=== PATIENT | male | born 1940 | race Caucasian/White ===

== ENCOUNTER → 2022-01-11 | Outpatient (CLI) | payer MEDICARE, SELFPAY ==
--- NOTE | 2022-01-11 10:17 | RAD_ITS ---
STUDY: X-RAY - LUMBAR SPINE REASON FOR EXAM: Male, 81 years old. RADICULOPATHY, LUMBAR REGION TECHNIQUE: 4 view(s) of the lumbar spine were obtained. COMPARISON: None FINDINGS: Normal lumbar lordosis. There is no substantial scoliosis. There is slight degenerative anterolisthesis of L5 on S1 and with slight degenerative posterior listhesis of L4 on L5. No lumbar compression fracture. The lumbar disc spaces demonstrate mild/moderate degenerative narrowing with mild endplate sclerosis and marginal osteophytes; these osteophytes are largest at the L1/2 level. Extensive lower thoracic and lumbar facet arthritis is present. Visualized upper sacrum is unremarkable. Abdominal aorta is mildly calcific. Visualized lower ribs are intact. Visualized bowel loops are unremarkable. No renal calculi are seen. RAD/L/S Spine Min 4 Views IMPRESSION: Lumbar degenerative disc disease and facet arthritis. No acute fracture. Electronically Signed: Kojo Martin MD at 2:38 EDT ,
== END | disposition home or self-care (01) ==
PROVIDERS: PCP Dentist; Referring Provider Podiatrist; Visit Provider Podiatrist
DX: M54.16 Radiculopathy, lumbar region (principal)
CPT/HCPCS: 72110

== ENCOUNTER 2022-02-09 16:00 | Outpatient (RCR) | payer MEDICARE, SELFPAY | END 2022-02-09 19:00 | disposition home or self-care (01) | LOC: PT 16:00 | PROVIDERS: PCP Family Medicine; Referring Provider Podiatrist; Visit Provider Podiatrist | DX: M21.371 Foot drop, right foot (principal) | CPT/HCPCS: 97110; 97161 ==

== ENCOUNTER → 2023-01-17 | Outpatient (CLI) | payer MEDICARE, SELFPAY ==
[2023-01-17 08:30] LABS: AST(SGOT) 25 U/L (15-37); Alanine Aminotransfer ALT/SGPT 23 U/L (16-61); Albumin, Serum 3.3 g/dL (3.2-5.0); Alkaline Phosphatase 61 U/L (45-117); Bilirubin, Direct 0.09 mg/dL (0.00-0.30); Cholesterol 142 mg/dL (200); Globulin 4.4 g/dL (2.2-4.2); High Density Lipoprotein 45 mg/dL; Protein, Total 7.7 g/dL (6.4-8.2); Triglycerides 89 mg/dL; Very Low Density Lipoprotein 18 mg/dL (5-40)
== END | disposition home or self-care (01) ==
PROVIDERS: PCP Internal Medicine; Referring Provider Internal Medicine Cardiovascular Disease; Visit Provider Internal Medicine Cardiovascular Disease
DX: I10 Essential (primary) hypertension (principal); E78.00 Pure hypercholesterolemia, unspecified; I35.0 Nonrheumatic aortic (valve) stenosis
CPT/HCPCS: 36415; 80061; 80076

== ENCOUNTER → 2023-01-19 | Outpatient (CLI) | payer MEDICARE, SELFPAY ==
--- NOTE | 2023-01-19 09:51 | ECHOCS_ITS ---
Version 2 Reason For Study: Procedure This was a 2D Doppler, Color Flow transthoracic echocardiogram. Exam performed in department. Left Ventricle Normal LV size. Mild concentric left ventricular hypertrophy. The estimated ejection fraction is 60 %. Septal motion consistent with bundle branch block. No regional wall motion abnormalities noted. Right Ventricle Normal RV size. Normal systolic function. Atria Normal left atrium. Normal right atrium. Mitral Valve Normal mitral valve. Mild (1+) eccentric mitral valve insufficiency. Tricuspid Valve Normal tricuspid valve. Aortic Valve Trisinus/trileaflet aortic valve. Peak aortic valve gradient 33 mmHg. Mean aortic valve gradient 20 mmHg. Mild aortic stenosis. Pulmonic Valve Normal pulmonic valve. Great Vessels Normal aortic root. The pulmonary artery is normal size. Normal inferior vena cava. Pericardium/Pleural No pericardial effusion. MMode/2D Measurements & Calculations LVIDd: 3.5 cm IVSd: 1.3 cm LVOT diam: 2.0 cm LVIDs: 2.5 cm LVPWd: 1.3 cm LVOT area: 3.3 cm2 RVDd: 3.7 cm FS: 28.6 % Ao root diam: 3.2 cm LAV(MOD-bp): 37.9 ml LVAd ap4: 27.9 cm2 ACS: 1.1 cm LAV(MOD-bp) Indexed: 19.7 ml/m2 LVLd ap4: 8.6 cm LAV(MOD-sp2): 49.6 ml EDV(MOD-sp4): 74.7 ml LAV(MOD-sp4): 30.1 ml EDV(sp4-el): 76.6 ml LVAs ap4: 14.5 cm2 LVLs ap4: 6.3 cm ESV(MOD-sp4): 28.3 ml ESV(sp4-el): 28.3 ml EF(MOD-sp4): 62.1 % EF(sp4-el): 63.0 % SV(MOD-sp4): 46.3 ml SV(sp4-el): 48.3 ml LA A4 area: 13.1 cm2 LA dimension(2D): 3.8 cm RA A4 area: 10.4 cm2 Time Measurements MV dec time: 0.32 sec Doppler Measurements & Calculations MV E max maximo: 74.8 cm/sec Lat Peak E' Maximo: 9.0 cm/sec Med Peak E' Maximo: 5.9 cm/sec MV A max maximo: 112.1 cm/sec E/E' lat: 8.3 E/E' med: 12.8 MV E/A: 0.67 MV V2 max: 124.2 cm/sec Ao V2 max: 288.7 cm/sec MV max P.2 mmHg MV dec slope: 235.5 cm/sec2 Ao max P.4 mmHg MV V2 mean: 76.8 cm/sec Ao V2 mean: 212.8 cm/sec MV mean P.6 mmHg Ao mean P.2 mmHg MV V2 VTI: 30.4 cm Ao V2 VTI: 66.1 cm AV (velocity ratio): 0.48 MVA(VTI): 3.4 cm2 MADELINE(I,D): 1.6 cm2 MADELINE(V,D): 1.6 cm2 LV V1 max: 136.8 cm/sec SV(LVOT): 103.8 ml PA V2 max: 167.0 cm/sec LV V1 max P.5 mmHg PA V2 mean: 99.6 cm/sec LV V1 mean P.6 mmHg LV V1 mean: 100.7 cm/sec LV V1 VTI: 31.6 cm TR max maximo: 306.6 cm/sec TR max P.6 mmHg ECHO/Echo Complete Interpretation Summary Normal LV size. Mild concentric left ventricular hypertrophy. The estimated ejection fraction is 60 %. Septal motion consistent with bundle branch block. Mean aortic valve gradient 20 mmHg. Mild aortic stenosis. The aortic valve gradients are also identical. Compared to previous study, the left ventricular systolic function is the same.. Ordering Physician: Mil Maguire Referring Physician: Chula eBlla Performed By: Jaja Parisi, ALEJANDROCS, RVT
== END | disposition home or self-care (01) ==
PROVIDERS: PCP Internal Medicine; Referring Provider Internal Medicine Cardiovascular Disease; Visit Provider Internal Medicine Cardiovascular Disease
DX: I35.0 Nonrheumatic aortic (valve) stenosis (principal)
CPT/HCPCS: 93306

== ENCOUNTER 2023-09-01 15:31 | Emergency (ER) | payer MEDICARE, SELFPAY ==
[2023-09-01 15:33] VITALS: BP 173/108; PULSE 89; RESP 18; TEMP 37.2; O2SAT 93
[2023-09-01 15:47] LABS: Absolute Lymphocyte Count 0.88 X10^3/uL (0.83-4.51); Absolute Neutrophil Count 4.4 X10^3/uL (2.0-7.7); Basophil# 0.02 X10^3/uL; Basophil% 0.3 % (0-1); Eosinophil# 0.12 X10^3/uL; Eosinophils% 1.9 % (0-5); Hematocrit 36.9 % (40-54); Hemoglobin 12.3 g/dL (13.0-16.5); Lymphocyte # 0.88 X10^3/ul (0.83-4.51); Lymphocyte % 13.9 % (19-41); Mean Corp Hgb Conc 33.3 g/dL (32-36); Mean Corpuscular Hgb 30.4 pg (27.0-32.0); Mean Corpuscular Volume 91.3 fL (80-94); Mean Platelet Vol. 9.2 fl (6.2-12.0); Monocyte# 0.92 X10^3/uL; Monocyte% 14.5 % (0-10); NRBC Flagged by Analyzer 0 % (0-5); Neutrophil # 4.38 X10^3/uL (2.7-7.7); Neutrophil % 69.1 % (47-70); Platelet Count 231 K/mm3 (150-450); RBC Distribution Width CV 13.3 % (11.6-14.6); RBC Distribution Width SD 44.7 fl (35.1-43.9); Red Blood Count 4.04 M/mm3 (4.6-6.2); White Blood Count 6.3 K/mm3 (4.4-11.0)
--- NOTE | 2023-09-01 16:00 | RAD_ITS ---
STUDY: X-RAY CHEST REASON FOR EXAM: Male, 82 years old. chest pain TECHNIQUE: Single AP portable view of the chest. COMPARISON: None. FINDINGS: The lungs are clear and expanded. There is no demonstrated pleural abnormality. Normal size heart. Normal mediastinum and zoran. Normal visualized pulmonary arteries. There is atherosclerotic calcification of the aortic arch with tortuosity. There are diffuse degenerative changes of the visualized thoracic spine. Normal visualized ribs, clavicles, and shoulders. There is no demonstrated abnormality of the visualized soft tissue structures of the upper abdomen. RAD/Chest 1 View (Portable) IMPRESSION: Degenerative changes, as described above. No demonstrated acute cardiopulmonary process. Electronically Signed: Anthony Jade MD at 16:31 EST ,
[2023-09-01 16:09] LABS: Anion Gap 7 (5-15); BUN 35 mg/dL (7-18); BUN/Creat Ratio 25.2 RATIO (10-20); Calcium,Total 9.7 mg/dL (8.5-10.1); Chloride 103 mmol/L (98-107); Creatinine, Serum 1.39 mg/dL (0.70-1.30); EST Glomerular Filtration Rate 52 mL/min (>60); Est Glom Filt Rate - Afr Amer 63 mL/min (>60); Glucose 141 mg/dL (74-106); Potassium 3.8 mmol/L (3.5-5.1); Sodium Level 137 mmol/L (136-145); Troponin-I HS (w/2H Reflex) 7 pg/mL (3.0-78.0)
[2023-09-01 17:12] VITALS: BMI 25.6
[2023-09-01 17:13] VITALS: BP 143/87; PULSE 76; RESP 16; O2SAT 93
--- OUTSIDE RECORDS SUMMARY | 2023-09-01 17:20 | XMS RPT_ITS | CCD ---
Author Name Unknown Address [address] [facility] [address] [place] [address] Organization [facility] Care Team Providers Care Wind Commissioning Technician Name Role Phone ED BAIG Unavailable Unavailable PHYSICIAN, MISC Unavailable Unavailable ED BAIG Unavailable Unavailable PHYSICIAN, MISC Unavailable Unavailable Nelson Howe MD Primary Care Provider [phone] Nelson Howe MD Primary Care Provider NELSON HOWE Primary Care Unavailable NELSON HOWE Attending Unavailable DEVANTE KANG Referring Unavailab NELSON Guo Primary Care Unavailable GERALD, DEVANTE RAMOS Referring Unavailab le NELSON HOWE Primary Care Unavailable GERALD, DEVANTE RICHARD Referring Unavailab NELSON Guo Primary Care Unavailable NELSON HOWE Referring Unavailable NELSON HOWE Primary Care Unavailable NELSON HOWE Referring Unavailable NELSON HOWE Primary Care Unavailable NELSON HOWE Referring Unavailable NELSON HOWE Primary Care Unavailable NELSON HOWE Attending Unavailable ZORAIDA MARTINEZ Referring Unavailable NELSON HOWE Primary Care Unavailable GERALD, DEVANTE RICHARD Referring Unavailab le NELSON HOWE Primary Care Unavailable NELSON HOWE Primary Care Unavailable NELSON HOWE Referring Unavailable NELSON HOWE Primary Care Unavailable NELSON HOWE Referring Unavailable NELSON HOWE Primary Care Unavailable NELSON HOWE Referring Unavailable Nelson Howe MD Primary Care Provider [phone] Medications Current Medications Medication Drug Class(es) Dates Sig (Normalized) Sig (Original) perflutren lipid microspheres 1.3 mL in NaCl (PF) 0.9% 10 mL injection (DEFINITY) (9 sources) Start: 08-19-2021 End: 11-18-2022 perflutren lipid microspheres 1.3 mL in NaCl (PF) 0.9% 10 mL injection (DEFINITY) 125 ml sodium chloride 9 mg/ml prefilled syringe (9 sources) Start: 08-19-2021 End: 11-18-2022 sodium chloride 0.9 % (flush) 10 mL (BD POSIFLUSH) Completed/Discontinued Medications Medication Drug Class(es) Dates Sig (Normalized) Sig (Original) hydroCHLOROthiazide 25 mg oral tablet (8 sources) Thiazide Diuretic Start: take 1 tablet by mouth once daily hydroCHLOROthiazide (HYDRODIURIL, ESIDRIX) 25 mg tablet Take 1 tablet by mouth once daily. 90 tablet 3 01/13/2022 Active Problems Active Problems Problem Classification Problem Date Documented Date Episodic/Chronic Conduction disorders (9 sources) Left bundle branch block; Translations: [Left bundle-branch block, unspecified] Onset: 01-13-2022 Chronic Disorders of lipid metabolism (14 sources) Mixed hyperlipidemia; Translations: [Mixed hyperlipidemia] Onset: 08-24-2007 03-14-2017 Chronic Diverticulosis and diverticulitis (13 sources) Diverticulosis of colon; Translations: [Diverticulosis of large intestine without perforation or abscess without bleeding] Onset: 03-19-2008 03-14-2017 Chronic Essential hypertension (11 sources) Essential hypertension; Translations: [Essential (primary) hypertension] Onset: 01-13-2022 Chronic Heart valve disorders (14 sources) Nonrheumatic aortic (valve) stenosis; Translations: [Aortic valve disorders] Onset: 09-08-2021 09-08-2021 Chronic Hyperplasia of prostate (13 sources) Benign prostatic hyperplasia; Translations: [Benign prostatic hyperplasia without lower urinary tract symptoms] Onset: 03-20-2018 03-20-2018 Chronic Other and unspecified benign neoplasm (11 sources) Tubular adenoma of colon; Translations: [Benign neoplasm of colon, unspecified] 03-07-2018 Episodic Other connective tissue disease (1 source) Swelling of lower limb; Translations: [Other specified soft tissue disorders] Episodic Other ear and sense organ disorders (11 sources) Bilateral hearing loss; Translations: [Unspecified hearing loss, bilateral] Onset: 03-14-2017 03-14-2017 Chronic Residual codes; unclassified (2 sources) Edema of lower extremity; Translations: [Localized edema] Onset: 01-11-2022 01-11-2022 Episodic Unclassified (2 sources) UNSPECIFIED INJURY HEAD INITIAL ENC / S09.90XA(ICD-10) Onset: 04-20-2017 Unclassified (1 source) ABRASION LEFT FOREARM INITIAL ENC / S50.812A(ICD-10) Onset: 04-20-2017 Unclassified (1 source) PEDL DRVR INJ NONCOLL TRNSP NT INIT / V18.0XXA(ICD-10) Onset: 04-20-2017 Unclassified (1 source) ACTIVITY BIKE RIDING / Y93.55(ICD-10) Onset: 04-20-2017 Unclassified (1 source) RAILROAD TRACK PLACE OCC EXT CAUSE / Y92.85(ICD-10) Onset: 04-20-2017 Past or Other Problems Problem Classification Problem Date Documented Da te Episodic/Chronic Administrative/social admission (9 sources) Advance directive discussed with patient; Translations: [Other specified counseling] Onset: 02-17-2022 Episodic Cancer of colon (13 sources) History of malignant neoplasm of colon; Translations: [Personal history of other malignant neoplasm of large intestine] Onset: 03-19-2008 03-20-2018 Episodic Heart valve disorders (1 source) Cardiac murmur, unspecified; Translations: [Heart murmur] Onset: 09-01-2021 Episodic Other circulatory disease (4 sources) Elevated blood-pressure reading without diagnosis of hypertension; Translations: [Elevated blood-pressure reading, without diagnosis of hypertension] Onset: 08-24-2007 08-24-2007 Episodic Other connective tissue disease (1 source) Other specified soft tissue disorders; Translations: [Leg swelling] Onset: 01-11-2022 Episodic Other diseases of kidney and ureters (1 source) Disorder of kidney and ureter, unspecified; Translations: [Renal insufficiency] Onset: 02-27-2022 Episodic Other male genital disorders (12 sources) Disorder of prostate; Translations: [Disorder of prostate, unspecified] Onset: 03-07-2018 03-07-2018 Episodic Other male genital disorders (1 source) Disorder of prostate, unspecified; Translations: [Prostate disorder] Onset: 02-17-2022 Episodic Other non-epithelial cancer of skin (11 sources) Squamous cell carcinoma of skin; Translations: [Squamous cell carcinoma of skin, unspecified] Onset: 05-04-2018 05-02-2020 Episodic Other screening for suspected conditions (not mental disorders or infectious disease) (20 sources) Thyroid function tests abnormal; Translations: [Other specified abnormal findings of blood chemistry] Onset: 05-03-2020 06-09-2020 Episodic Residual codes; unclassified (10 sources) Bilateral lower limb edema; Translations: [Localized edema] Onset: 01-11-2022 01-11-2022 Episodic Residual codes; unclassified (8 sources) Active living will ; Translations: [Other specified health status] Onset: 02-17-2022 Episodic Residual codes; unclassified (1 source) Other specified health status; Translations: [Living will in place] Onset: 02-17-2022 Episodic Residual codes; unclassified (2 sources) Localized edema; Translations: [Bilateral leg edema] Onset: 09-01-2021 Episodic Screening and history of mental health and substance abuse codes (11 sources) Ex-smoker; Translations: [Personal history of nicotine dependence] Onset: 03-14-2017 03-14-2017 Episodic Unclassified (1 source) UNSPECIFIED INJURY HEAD INITIAL ENC; Translations: [UNSPECIFIED INJURY HEAD INITIAL ENC] Onset: 04-15-2017 Results Test Name Value Interpretation Reference Range Facil ity Vital Signs Date Time Vital Sign Value Performing Clinician Johnnie navarro 02-17-2022 19:12-0400 Body height 171.5 cm Nelson Howe MD Work Phone: [facility] 02-17-2022 19:12-0400 Body weight 77.11 kg Nelson Howe MD Work Phone: [facility] 02-17-2022 19:12-0400 Diastolic blood pressure 78 mm[Hg] Nelson Howe MD Work Phone: [facility] 02-17-2022 19:12-0400 Heart rate 72 /min Nelson Howe MD Work Phone: [facility] 02-17-2022 19:12-0400 Respiratory rate 16 /min Nelson Howe MD Work Phone: [facility] 02-17-2022 19:12-0400 Systolic blood pressure 128 mm[Hg] Nelson Howe MD Work Phone: [facility] 01-13-2022 08:37-0400 Diastolic blood pressure 80 mm[Hg] Devante Knag MD Work Phone: [facility] 01-13-2022 08:37-0400 Systolic blood pressure 140 mm[Hg] Devante Kang MD Work Phone: [facility] 01-13-2022 08:16-0400 Body height 171.5 cm Devante Kang MD Work Phone: [facility] 01-13-2022 08:16-0400 Body weight 77.56 kg Devante Kang MD Work Phone: [facility] 01-13-2022 08:16-0400 Heart rate 84 /min Devante Kang MD Work Phone: [facility] 01-13-2022 08:16-0400 Respiratory rate 18 /min Devante Kang MD Work Phone: [facility] 01-13-2022 08:16-0400 SaO2% (BldA) [Mass fraction] 95 % Devante Kang MD Work Phone: [facility] Encounters Encounter Date Encounter Type Care Provider Facility Start: 06-23-2023 Refill Devante Kang MD Work Phone: [facility] [place] Procedures Date Procedure Procedure Detail Performing Clinician Start: 03-29-2022 Myocardial spect mul tiple studies Devante Kang MD Work Phone: Start: 02-17-2022 Adult depression screening assessment Nelson Howe MD Work Phone: Start: 03-27-2019 Adult depression screening assessment Nelson Howe MD Work Phone: Plan of Treatment Date Care Activity Detail Author Start: 02-27-2025 DIABETES SCREEN DIABETES SCREEN [facility] Start: 02-27-2025 Diabetes Screening Diabetes Screening [facility] Start: 08-03-2023 Urine microalbumin profile [facility] Start: 05-02-2023 DIABETES SCREEN DIABETES SCREEN [facility] Start: 02-17-2023 Adult depression screening assessment DEPRESSION SCREENING [facility] Start: 02-17-2023 ANNUAL PCP TEAM CHRONIC DISEASE VISIT ANNUAL PCP TEAM CHRONIC DISEASE VISIT [facility] Start: 02-17-2023 BP CONTROLLED (<130/80) BP CONTROLLED (<130/80) [facility] Start: 09-05-2022 Advance Directive Discussion Advance Directive Discussion [facility] Start: 09-05-2022 Depression Assessment Depression Assessment [facility] Start: 08-19-2022 ANNUAL PCP TEAM CHRONIC DISEASE VISIT ANNUAL PCP TEAM CHRONIC DISEASE VISIT [facility] Start: 05-06-2022 Influenza vaccination INFLUENZA (#1) [facility] Start: 02-17-2022 End: 04-19-2022 Comprehensive metabolic 2000 panel - Serum or Plasma COMP METABOLIC PANEL Lab Routine Mixed hyperlipidemia Primary hypertension Expected: 02/17/2022, Expires: 04/19/2022 [facility] Work Phone: Immunizations Immunization Date Immunization Notes Care Provider Fa cili 06-06-2023 COVID-19 vaccine, ag e 12+ yr, season (PFIZER-BIONTECH) Devante Kang MD Work Phone: [facility] 06-06-2023 influenza, high dose seasonal, preservative-free Devante Kang MD Work Phone: [facility] 06-11-2022 COVID-19 vaccine, ag e 12+ yr, bivalent (PFIZER-BIONTECH) Devante Kang MD Work Phone: [facility] 06-11-2022 influenza, high dose seasonal, preservative-free Devante Kang MD Work Phone: [facility] 05-16-2020 influenza, high dose seasonal, preservative-free Nelson Howe MD Work Phone: [facility] 10-02-2019 zoster vaccine recombinant Nelson Howe MD Work Phone: [facility] Work Phone: 06-21-2019 influenza, high dose seasonal, preservative-free Nelson Howe MD Work Phone: [facility] 06-23-2018 influenza, high dose seasonal, preservative-free Nelson Howe MD Work Phone: [facility] 05-02-2018 zoster vaccine recombinant Nelson Howe MD Work Phone: [facility] Work Phone: 03-20-2018 pneumococcal polysaccharide vaccine, 23 valent Nelson Howe MD Work Phone: [facility] 06-20-2017 influenza, injectabl e, quadrivalent, contains preservative Nelson Howe MD Work Phone: [facility] Work Phone: 03-14-2017 pneumococcal conjuga te vaccine, 13 valent Nelson Howe MD Work Phone: [facility] 08-03-2013 tetanus toxoid, redu julián diphtheria toxoid, and acellular pertussis vaccine, adsorbed Nelson Howe MD Work Phone: [facility] Work Phone: 01-05-2008 zoster vaccine, live Nelson Howe MD Work Phone: [facility] Work Phone: 07-16-2007 pneumococcal polysaccharide vaccine, 23 valent Nelson Howe MD Work Phone: [facility] Work Phone: 03-05-2001 tetanus and diphther ia toxoids, adsorbed, preservative free, for adult use (2 Lf of tetanus toxoid and 2 Lf of diphtheria toxoid) Nelson Howe MD Work Phone: [facility] Work Phone: Payers Date Payer Category Payer Medicare AET[employer] MEDICARE A ETNA MEDICARE PPO [id number] 2021-Present [phone] [id number] [place] [address] PPO [id number] 2021 Medicare A[employer] MEDICARE A ETNA MEDICARE PPO [id number] 2021-Present [phone] [address] [place] [address] PPO [id number] 2021 Medicare [id number] 1958 Medicare [id number] Social History Date Type Detail Facility Start: 05-19-2022 Tobacco smoking stat [facility] Ex-smoker [facility] History of tobacco use Cigarette Smoker [facility] Start: 09-08-2021 End: 05-19-2022 Alcohol intake Current drinker of alcohol (finding) [facility] Start: 05-02-2020 End: 02-17-2022 History SDOH Alcohol Frequency 4 [facility] Start: 05-02-2020 End: 02-17-2022 History SDOH Alcohol Std Drinks 1 [facility] Start: 03-27-2019 History SDOH Alcohol Comment social [facility] Start: 04-30-2020 End: 02-17-2022 History SDOH Social Connections Get Together 2 [facility] Start: 04-30-2020 End: 02-17-2022 History SDOH Social Connections [employer] 3 [facility] Start: 04-30-2020 History SDOH Physica l Activity MPS 15 [facility] Start: 04-30-2020 End: 02-17-2022 History SDOH Financial 5 [facility] Start: 04-29-2020 Education 20 [facility] Start: 1940 Sex Assigned At Male [facility] Start: 12-20-2021 End: 05-19-2022 Exposure to SARS-CoV-2 (event) Not sure [facility] Start: 12-26-2021 End: 01-05-2022 Exposure to SARS-CoV-2 (event) Unable to assess [facility] Work Phone: Start: 02-17-2022 History SDOH Physica l Activity MPS 12 [facility] History of tobacco use Current smoker [facility] Start: 05-19-2022 End: 09-28-2022 Cigarettes smoked current (pack per day) - Reported 1 [facility] Start: 05-19-2022 Tobacco use and exposure Smoke less tobacco non-user [facility] Start: 05-19-2022 Tobacco Comment states quit 4 0 years ago [facility] Start: 02-17-2022 End: 09-28-2022 Social connection and isolation panel [facility] Do you belong to any clubs or organizations such as sikhism groups, unions, fraternal or athletic groups, or school groups? Yes [facility] Are you now , , , , never or living with a partner? [facility] How often to you hav e a drink containing alcohol? 2-3 time sa week [facility] How many standard dr inks containing alcohol do you have on a typical day? 1 or 2 [facility] How often do you hav e 6 or more drinks on 1 occasion? Never [facility] How hard is it for y ou to pay for the very basics like food, housing, medical care, and heating Not hard at all [facility] Do you feel stress - tense, restless, nervous, or anxious, or unable to sleep at night because your mind is troubled all the time - these days [OSQ] Not at all [facility] (I/We) worried wheeloy er (my/our) food would run out before (I/we) got money to buy more. Never true [facility] In the past 12 month s, was there a time when you were not able to pay the mortgage or rent on time? No [facility] Start: 04-30-2020 Gender identity Identifies as male gender (finding) [facility] Clinical Notes 08-19-2021 to 06-23-2023 Telephone Encounter - Morelia Esparza - 06/23/2023 11:01 AM EDTTelephone Encounter - Nila Reed LPN - 06/23/2023 10:04 AM EDTPatient Moris Howe MD - 02/17/2022 6:38 PM EDT Note Date & Type Note Facility 06-23-2023 Miscellaneous Notes Lvm to notify pt of lauri on 07/04/23 @9 am in [place] w/ Dr. Kang. Advised pt to call back if he wishes to reschedule. Morelia Esparza June 23, 2023 11:02 AM Patient last seen on 05/19/2022. Please call patient to schedule over due annual follow up. Nila Reed LPN documented in this encounter [facility] 06-23-2023 Miscellaneous Notes Patient's request for medication is as follows: Requested Prescriptions Pending Prescriptions Disp Refills rosuvastatin (CRESTOR) 5 mg tablet [Pharmacy Med Name: ROSUVASTATIN CALCIUM 5 MG TAB] 90 tablet 0 Sig: take 1 tablet by mouth at bedtime (TUESDAY-TUESDAY ONLY) Patient last seen on 05/19/2022. Message sent to clerical to call patient to schedule over due annual follow up. Prescription(s) as above. Please process accordingly. Nila Reed LPN documented in this encounter [facility] 05-25-2022 Miscellaneous Notes Spoke with pt about test results and recommendations to continue rosuvastatin and rechecking lipids in 3 months. Patient verbalizes understanding and is agreeable. Pura Esparza LPN Lipids are still above goal. Continue rosuvastatin, may need to increase to 10 mg daily. REcheck lipids in 3 months. documented in this encounter [facility] 03-30-2022 Miscellaneous Notes Voicemail msg left for pt to return call to [facility] to review test results. Office phone number provided. Pura Esparza LPN Negative stress test, normal LV function. documented in this encounter [facility] 03-29-2022 Note HNO ID: [id number] Author: Neema Willis RN Service: ? Author Type: Registered Nurse Type: Progress Notes Filed: 03/29/2022 12:47 PM Note Text: RADIOLOGY SERVICE PROGRESS NOTE SERVICE DATE: 03/29/2022 SERVICE TIME: 0900 PATIENT IDENTITY VERIFICATION COMPLETED USING TWO (2) METHODS: Patient confirmed name and Date of verbally. ALLERGIES REVIEWED: RK MEDICATIONS REVIEWED BY: ROLDAN PROCEDURE TYPE: NM STRESS: 0.4 mg of Lexiscan was administered IV at 0915 over 10 Seconds by Neema Willis RN Reversal agent used:NA LOT 32-105EV EXP IV SITE: IV palced by nuclear tecnologist POST EXAM PIV STATUS: Discontinued by Live In Companion PATIENT DISCHARGED TO: Nuclear Medicine Department for post stress imaging A Diagnostic radioactive procedure has taken place, with no further precautions necessary other than routine body substance precautions. More information regarding radiation safety can be found using this link: [email or web address] [email or web address] SIGNATURE: NEEMA WILLIS RN PATIENT NAME: SAMY SHORT DATE: 03/29/22 TIME: 12:46 PM [facility] 03-29-2022 Note HNO ID: [id number] Author: Amelia Gil RT(R) Service: Nuclear Medicine Author Type: Technologist Type: Progress Notes Filed: 03/29/2022 11:24 AM Note Text: RADIOLOGY SERVICE PROGRESS NOTE SERVICE DATE: 03/29/2022 SERVICE TIME: 08:05AM PATIENT IDENTITY VERIFICATION COMPLETED USING TWO (2) STANDARD IDENTIFIERS: Name and Date of confirmed by patient verbally FALL SCREENING: Has the patient had 2 falls in the last year or 1 fall with injury or currently using an Ambulatory Assistive Device (Walker, Cane, Wheelchair, Crutches, etc.)? No PATIENT GENDER DATA: .male ALLERGIES: Reviewed and unchanged MEDICATIONS REVIEWED: No PATIENT RELEVANT IMPLANT DATA REVIEWED: Not Applicable CREATININE: Creatinine Date Value Ref Range Status 02/27/2022 1.27 (H) 0.73 - 1.22 mg/dL Final 02/19/2022 1.31 (H) 0.73 - 1.22 mg/dL Final 05/02/2020 1.09 0.73 - 1.22 mg/dL Final Estimated Glomerular Filtration Rate Date Value Ref Range Status 02/27/2022 57 (L) >=60 mL/min/1.73m? Final Comment: Estimated Glomerular Filtration Rate (eGFR) is calculated using the 2020 CKD-EPI creatinine equation. This equation utilizes serum creatinine, sex, and age as parameters. The creatinine assay has traceable calibration to isotope dilution-mass spectrometry. Refer to KDIGO guidelines for clinical interpretation. In patients with unstable renal function, e.g. those with acute kidney injury, the eGFR may not accurately reflect actual GFR. eGFR- Date Value Ref Range Status 05/02/2020 >60 Final P.O.C.T. RESULTS: N/A March 29, [address] PERFORMED: No IV SITE: Ambulatory: A peripheral IV was started in the Right antecubital site with a Angio cath: 22 gauge. POST EXAM PIV STATUS: Discontinued PROCEDURE TYPE: NM Stress: 11.1mCi [id number] was administered IV for Rest Imaging at 08:14 by .me. 29.6 mCi [id number] was administered IV for Stress Imaging at 09:18 by .me. ADMINISTRATION TIME: PATIENT DISCHARGED TO: Ambulatory patient, left [place] department area. A Diagnostic radioactive procedure has taken place, with no further precautions necessary other than routine body substance precautions. More information regarding radiation safety can be found using this link: [email or web address]%20Medi [email or web address] SIGNATURE: RT Kimberli(R) PATIENT NAME: Samy Saucedo DATE: March 29, 2022 TIME: 11:23 AM PAGER/CONTACT #: [facility] 03-01-2022 Miscellaneous Notes Pt advised of instructions and verbalizes understanding.. Crys Hester LPN It would explain the glucose, but not effect kidney function. No need to repeat, just need to make sure he is staying hydrated and avoiding NSAIDs. Reviewed results and instructions with pt. Pt verbalizes understanding. Pt wanted to let Dr Howe know that he was not fasting at the time of lab work and had had a full breakfast and had pancakes or waffles with maple syrup. Pt wasn't sure if susan might have affected his results. Questions if he soul some in and give a fasting blood sample. Pt aware Dr Howe is out of the office and can wait for response. Crys Hester LPN Let patient know kidney function still look decreased but again appears to be dehydrated. Encourage increased water. documented in this encounter [facility] 02-17-2022 Note HNO ID: [id number] Author: Nelson Howe MD Service: ? Author Type: Physician Type: Progress Notes Filed: 02/18/2022 10:23 PM Note Text: Medicare Yearly Visit ? Medical B eligibilty date?unable to find Date of last exam?05/02/20 ? PAST MEDICAL HISTORY ? ? ? PAST MEDICAL HISTORY Diagnosis Date - Benign prostatic hyperplasia without lower urinary tract symptoms 03/20/2018 - Bilateral hearing loss 03/14/2017 - Diverticulosis of colon (without mention of hemorrhage) ? - Ex-smoker 03/14/2017 ? Started at age 19 up to 1 PPD and quit at age 22. - Malignant neoplasm of colon, unspecified site 03/19/2008 - Mixed hyperlipidemia 08/24/2007 - Squamous cell skin cancer 05/04/2018 ? Right cheek preauricular, 04/2018 - Tubular adenoma of colon 2008 ? ? PAST SURGICAL HISTORY ? PAST SURGICAL HISTORY Procedure Laterality Date - APPENDECTOMY ? 1975 ? expl lap, close sigmoid perforation - COLONOSCOPY W/BX ? 03/19/08 - I AND D ABSCESS ? child ? cervical ? ? Patient has no known allergies. ? Medications reviewed:??Yes ? FAMILY HISTORY ? FAMILY HISTORY Problem Relation Age of Onset - Diabetes Mother ? - Diabetes Father ? - Cancer Paternal Grandfather ?colon vs prostate - Diabetes Paternal Uncle ? ? ? SOCIAL HISTORY: Social History ??Socioeconomic History ?Marital status: ?Spouse name: Adwoa ?Number of children: 2 ?Years of education: 17 ?Highest education level: Not on file ??Occupational History ?Occupation: retired ?Employer: [employer] ??Social Needs ?Financial resource strain: Not on file ?Food insecurity: ?Worry: Not on file ?Inability: Not on file ?Transportation needs: ?Medical: Not on file ?Non-medical: Not on file ??Tobacco Use ?Smoking status: Former Smoker ?Packs/day: 1.00 ?Years: 5.00 ?Pack years: 5 ?Types: Cigarettes ?Smokeless tobacco: Never Used ?Tobacco comment: states quit 40 years ago ??Substance and Sexual Activity ?Alcohol use: Yes ?Alcohol/week: 2.5 - 5.0 standard drinks ?Types: 1 - 2 Glasses of Wine (5oz) per week ?Comment: social ?Drug use: No ?Sexual activity: Not on file ??Lifestyle ?Physical activity: ?Days per week: Not on file ?Minutes per session: Not on file ?Stress: Not on file ??Relationships ?Social connections: ?Talks on phone: Not on file ?Gets together: Not on file ?Attends sikh service: Not on file ?Active member of club or organization: Not on file ?Attends meetings of clubs or organizations: Not on file ?Relationship status: Not on file ?Intimate partner violence: ?Fear of current or ex partner: Not on file ?Emotionally abused: Not on file ?Physically abused: Not on file ?Forced sexual activity: Not on file ??Other Topics ?Concerns: ?Not on file ??Social History Narrative ?Not on file ?? Samy?works out regularly?7?times per week with walking and?bicycling.??He?watches his?diet for sodium, low fat and low cholesterol all of the time. ? ? List of current specialists seen: [facility] derm Dr. Kang (cardio ? End of Live Planning discussed including patients advanced directive wishes:?Yes ? I am willing to follow Samy's advanced directives. ? ? PHQ-2 / Depression screen Depression Screening 03/14/2017 03/20/2018 03/27/2019 02/17/2022 PHQ-2 Score 0 0 0 0 Depression screening tool completed and reviewed. Based on score and interview, patient is not at risk for depression. Screening tool discussed with patient, and I recommended no further intervention at this time. ? ? ? Functional Ability/Safety Screen 1. Was the patient's timed Up and Go test unsteady or longer than 30 seconds???No 2. ?Does the patient need help with the phone, transportation, shopping,preparing meals, housework, laundry, medications or managing money? No 3. ?Does your home have rugs in the hallway, lack of grab bars in the bathroom, lack of handrails on the stairs or have poor lighting? No ? Hearing Evaluation:?wears hearing aids ? PHYSICAL EXAM BP 128/78 (BP Site: Left Arm, BP Position: Sitting, BP Cuff Size: Regular Adult) Pulse 72 Resp 16 Ht 171.5 cm (5' 7.5 ) Wt 77.1 kg (170 lb) BMI 26.23 kg/m? ? Alert and oriented X 3:?YES Body mass index is 26.23kg/m?. Visual acuity:sees opto ? ? ASSESSMENT/PLAN: 81 year old male The following prevention plan was discussed during the office visit and provided to the patient: See below Chief Complaint Patient presents with: Medicare Wellness Exam HPI Samy Saucedo is a 81 year old male who presents here today for Medicare Annual Visit. 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 [facility] 02-17-2022 Instructions Nelson Howe MD - 02/17/2022 8:00 PM EDT Please bring in copies of living will and power of document review attorney for health care. documented in this encounter [facility] 02-17-2022 History of Present illness Narrative Medicare Yearly Visit Medical B eligibilty date unable to find Date of last exam 05/02/20 PAST MEDICAL HISTORY PAST MEDICAL HISTORY Diagnosis Date Benign prostatic hyperplasia without lower urinary tract symptoms 03/20/2018 Bilateral hearing loss 03/14/2017 Diverticulosis of colon (without mention of hemorrhage) Ex-smoker 03/14/2017 Started at age 19 up to 1 PPD and quit at age 22. Malignant neoplasm of colon, unspecified site 03/19/2008 Mixed hyperlipidemia 08/24/2007 Squamous cell skin cancer 05/04/2018 Right cheek preauricular, 04/2018 Tubular adenoma of colon 2009 PAST SURGICAL HISTORY PAST SURGICAL HISTORY Procedure Laterality Date APPENDECTOMY 1974 expl lap, close sigmoid perforation COLONOSCOPY W/BX 03/19/08 I & D ABSCESS child cervical Patient has no known allergies. Medications reviewed: Yes FAMILY HISTORY FAMILY HISTORY Problem Relation Age of Onset Diabetes Mother Diabetes Father Cancer Paternal Grandfather colon vs prostate Diabetes Paternal Uncle SOCIAL HISTORY: Social History Socioeconomic History Marital status: Spouse name: Adwoa Number of children: 2 Years of education: 17 Highest education level: Not on file Occupational History Occupation: retired Employer: [employer] Social Needs Financial resource strain: Not on file Food insecurity: Worry: Not on file Inability: Not on file Transportation needs: Medical: Not on file Non-medical: Not on file Tobacco Use Smoking status: Former Smoker Packs/day: 1.00 Years: 5.00 Pack years: 5 Types: Cigarettes Smokeless tobacco: Never Used Tobacco comment: states quit 40 years ago Substance and Sexual Activity Alcohol use: Yes Alcohol/week: 2.5 - 5.0 standard drinks Types: 1 - 2 Glasses of Wine (5oz) per week Comment: social Drug use: No Sexual activity: Not on file Lifestyle Physical activity: Days per week: Not on file Minutes per session: Not on file Stress: Not on file Relationships Social connections: Talks on phone: Not on file Gets together: Not on file Attends sikh service: Not on file Active member of club or organization: Not on file Attends meetings of clubs or organizations: Not on file Relationship status: Not on file Intimate partner violence: Fear of current or ex partner: Not on file Emotionally abused: Not on file Physically abused: Not on file Forced sexual activity: Not on file Other Topics Concerns: Not on file Social History Narrative Not on file Samy works out regularly 7 times per week with walking and bicycling. He watches his diet for sodium, low fat and low cholesterol all of the time. List of current specialists seen: [facility] derm Dr. Kang (cardio End of Live Planning discussed including patients advanced directive wishes: Yes I am willing to follow Samy's advanced directives. PHQ-2 / Depression screen Depression Screening 03/14/2017 03/20/2018 03/27/2019 02/17/2022 PHQ-2 Score 0 0 0 0 Depression screening tool completed and reviewed. Based on score and interview, patient is not at risk for depression. Screening tool discussed with patient, and I recommended no further intervention at this time. Functional Ability/Safety Screen 1. Was the patient's timed Up and Go test unsteady or longer than 30 seconds? No 2. Does the patient need help with the phone, transportation, shopping,preparing meals, housework, laundry, medications or managing money? No 3. Does your home have rugs in the hallway, lack of grab bars in the bathroom, lack of handrails on the stairs or have poor lighting? No Hearing Evaluation: wears hearing aids PHYSICAL EXAM BP 128/78 (BP Site: Left Arm, BP Position: Sitting, BP Cuff Size: Regular Adult) Pulse 72 Resp 16 Ht 171.5 cm (5' 7.5 ) Wt 77.1 kg (170 lb) BMI 26.23 kg/m Alert and oriented X 3: YES Body mass index is 26.23kg/m . Visual acuity:sees opto ASSESSMENT/PLAN: 81 year old male The following prevention plan was discussed during the office visit and provided to the patient: See below Chief Complaint Patient presents with: Medicare Wellness Exam HPI Samy Saucedo is a 81 year old male who presents here today for Medicare Annual Visit. 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 When patient last saw me in Aug 2021 before going to [place] for the winter and he was c/o leg edema and on exam a heart murmur was noted. A US showed no DVT. An echo showed mild with Mod LA dilation mild Diastolic dysfunction and 1+ MR and TR. Patient was encouraged to see cardio for further eval but held off till he returned from [place]. Patient did see cardio 01/06/2022 and was noted to have a LBBB and ordered a stress test that is set up in May 2022. He was also started on a low dose diuretic for suspected primary HTN. Notes edema is improved. Patient continues to ride a bike on a regular basis. Has been seeing a foot doctor for some foot and ankle issues. Notes a sour stomach some afternoons. Past medical history, appointments, medications, allergies reviewed. Previous Medical History PAST MEDICAL HISTORY Diagnosis Date Abnormal echocardiogram Abnormal thyroid blood test 05/03/2020 TSH elevated but Free T4 and thyroid peroxidase normal. Per endo only treat if TSH gets above 10. Benign prostatic hyperplasia without lower urinary tract symptoms 03/20/2018 Bilateral hearing loss 03/14/2017 Bilateral leg edema Diverticulosis of colon (without mention of hemorrhage) Ex-smoker 03/14/2017 Started at age 19 up to 1 PPD and quit at age 22. Malignant neoplasm of colon, unspecified site 03/19/2008 Medicare annual wellness visit, subsequent 03/14/2017 last done: 05/02/2020 Mild aortic stenosis 09/08/2021 Echo 09/01/2021 Mixed hyperlipidemia 08/24/2007 Squamous cell skin cancer 05/04/2018 Right cheek preauricular, 04/2018 Tubular adenoma of colon 2009 Previous Surgical History PAST SURGICAL HISTORY Procedure Laterality Date APPENDECTOMY 1974 expl lap, close sigmoid perforation COLONOSCOPY W/BIOPSY SINGLE/MULTIPLE 08/01/2017 repeat 5 years I & D ABSCESS child cervical MOHS MICROGRAPHIC H/N/H/F/G 1ST STAGE 5 BLOCKS 05/2016 2 on face Family History FAMILY HISTORY Problem Relation Age of Onset Diabetes Mother Diabetes Father Prostate Cancer Brother at age 84 (2-3 yrs after dx) Cancer Paternal Grandfather colon vs prostate Diabetes Paternal Uncle Patient Allergies ALLERGIES No Known Allergies Current Medications Current Outpatient Medications on File Prior to Visit Medication Sig hydroCHLOROthiazide (HYDRODIURIL, ESIDRIX) 25 mg tablet Take 1 tablet by mouth once daily. Current Facility-Administered Medications on File Prior to Visit Medication perflutren lipid microspheres 1.3 mL in NaCl (PF) 0.9% 10 mL injection (DEFINITY) sodium chloride 0.9 % (flush) 10 mL (BD POSIFLUSH) Social History Social History Tobacco Use Smoking status: Former Smoker Packs/day: 1.00 Years: 5.00 Pack years: 5.00 Types: Cigarettes Smokeless tobacco: Never Used Tobacco comment: states quit 40 years ago Vaping Use Vaping Use: Never used Substance Use Topics Alcohol use: Yes Alcohol/week: 2.5 - 5.0 standard drinks Types: 1 - 2 Glasses of Wine (5oz) per week Comment: social Drug use: Never Review of Symptoms REVIEW OF SYSTEMS GENERAL: No weight loss, malaise or fevers HEENT: Negative for frequent or significant headaches, No changes in hearing or vision, no nose bleeds or other nasal problems NECK: Negative for lumps, goiter, pain and significant neck swelling RESPIRATORY: Negative for cough, hemoptysis, wheezing, COPD, dyspnea or shortness of breath CARDIOVASCULAR: Negative for chest pain, increased leg swelling, hypertension, CHF or palpitations GI: No nausea, vomiting, or diarrhea, No heartburn or reflux symptoms and no blood : No history of dysuria, blood MUSCULOSKELETAL: Negative for joint pain or swelling, back pain or muscle pain other then the right foot and ankle pain that he is seeing podiatry for. SKIN: Negative for lesions, rash, and itching PSYCH: Negative for sleep disturbance, mood disorder and recent psychosocial stressors HEMATOLOGY/LYMPHOLOGY: Negative for prolonged bleeding, bruising easily or swollen nodes ENDOCRINE: Negative for cold or heat intolerance, polyuria, polydipsia and goiter NEURO: No history of headaches, syncope, paralysis, seizures or tremors EXAM: BP 128/78 (BP Site: Left Arm, BP Position: Sitting, BP Cuff Size: Regular Adult) Pulse 72 Resp 16 Ht 171.5 cm (5' 7.5 ) Wt 77.1 kg (170 lb) BMI 26.23 kg/m General Appearance: Well appearing, alert, in no acute distress, well-hydrated, well nourished.. Skin: Skin color, texture, turgor normal, no suspicious rashes or lesions. Head: Normocephalic, no masses, lesions, tenderness or abnormalities. Eyes: Anicteric sclera. Pupils are equally round and reactive to light. Extraocular movements are intact. . Ears: External ears normal, canals clear. Neck: Supple, no adenopathy; thyroid symmetric, normal size, no bruits. Lungs: Lungs clear to auscultation. No wheezing, rhonchi, rales.. Heart: RRR without gallop, or rubs. No ectopy. 2/6 IMAN Abdomen: Normal abdominal exam, Abdomen soft, non-tender. Bowel sounds normal. No masses, organomegaly. Extremities: No deformities, edema, skin discoloration, clubbing or cyanosis. Musculoskeletal: Muscular strength intact, No joint swelling, deformity, or tenderness. Peripheral Pulses: Normal. Neurologic: Gait normal. Reflexes normal and symmetric. Sensation to light touch and crainal nerves 2-12 intact.. Genitalia: Normal, Penis normal. No urethral discharge. Scrotum normal to palpation. No hernia.. Health Maintenance List COVID-19 VACCINE(1) Never done BP CONTROLLED (<130/80) Never done DEPRESSION SCREENING due on 03/27/2020 ADVANCE DIRECTIVE DISCUSSION Never done ANNUAL PCP TEAM CHRONIC DISEASE VISIT due on 08/19/2022 DIABETES SCREEN due on 05/02/2023 DTAP,TDAP,TD(2 - Td or Tdap) due on 08/03/2023 INFLUENZA Completed SHINGRIX VACCINE Completed PNEUMOCOCCAL: 65+ Completed Data reviewed A/P ASSESSMENT/PLAN: 1. Medicare annual wellness visit, subsequent - ICD9: V70.0, ICD10: Z00.00 (primary diagnosis) - Counseled on healthy diet and regular exercise - Follow up for annual exam in one year 2. Mixed hyperlipidemia - ICD9: 272.2, ICD10: E78.2 - to be determined upon return of lab results - Encouraged following a low fat, low cholesterol diet. - Discussed the benefits of regular aerobic exercise and weight loss. - Encouraged following a low carbohydrate, healthy oil intake diet. - COMP METABOLIC PANEL - URINALYSIS, WITH MICROSCOPIC - LIPID PANEL, NONFASTING 3. Mild aortic stenosis by prior echocardiogram - ICD9: 424.1, ICD10: I35.0 - Cont management per cardio 4. Diverticulosis of colon - ICD9: 562.10, ICD10: K57.30 - clinically no issues. 5. History of colon cancer - ICD9: V10.05, ICD10: Z85.038 - Patient not wanting to under go any further colonoscopies. 6. Benign prostatic hyperplasia without lower urinary tract symptoms - ICD9: 600.00, ICD10: N40.0 - Stable no issues. 7. Living will in place - ICD9: V49.89, ICD10: Z78.9 - Asked to bring in copies. 8. Advance directive discussed with patient - ICD9: V65.49, ICD10: Z71.89 - As per #7 9. Primary hypertension - ICD9: 401.9, ICD10: I10 - good control - Continue current medication(s) - Recommended regular aerobic exercise. - Recommend home blood pressure monitoring, to bring results in on next visit - Goal of BP <130/80 Check - COMP METABOLIC PANEL - URINALYSIS, WITH MICROSCOPIC - LIPID PANEL, NONFASTING 10. Bilateral leg edema - ICD9: 782.3, ICD10: R60.0 - None on exam 11. Abnormal thyroid blood test - ICD9: 790.6, ICD10: R79.89 Check - TSH BLD 12. Prostate disorder - ICD9: 602.9, ICD10: N42.9 Check - PSA/PROSTSPECAG DIAG F/u in a year or sooner if issues. I spent a total of 40 minutes on the date of the service which included preparing to see the patient, [id number] patient care, completing clinical documentation, performing a medically appropriate examination, counseling and educating the patient/family/caregiver and ordering medications, tests, or procedures. Nelson Howe MD documented in this encounter [facility] 01-13-2022 Instructions Devante Kang MD - 01/13/2022 9:00 AM EDT BPs readings every day. Report in 2-3 weeks. Will call results documented in this encounter [facility] 01-13-2022 History of Present illness Narrative PRIMARY CARE PHYSICIAN: Nelson Howe [address] [place] [address] CHIEF COMPLAINT: Leg swelling HISTORY OF PRESENT ILLNESS: Mr. Saucedo is a 81 year old male who is seen today for cardiac evaluation. 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 He lives in [place] during the winter. He has noticed the development of intermittent leg swelling while living in [place]. It was first on the right leg than on the left leg. Patient states that there was no pain associated with the. He usually walks with his 1 to 2 miles daily and also exercises using a bicycle. He goes for 50 mile rides per week. Reports no anginal symptoms or shortness of breath. Vascular studies of the lower extremity excluded DVTs. Patient underwent echocardiographic assessment due to the presence of a murmur. Echocardiogram demonstrated normal systolic function diastolic impairment mild LVH and mild mitral tricuspid regurgitation and mild aortic valve stenosis. He denies chest pain, shortness of breath, orthopnea, cough, edema, palpitations, PND, lightheadedness or syncope. 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 HEENT: Negative for: Headache, Impaired Vision, Glasses, Hearing Impairment, Ringing in Ears, Nosebleeds, Poor dental care, Bleeding Gums, Dentures NECK: Negative for: Swelling, Pain, Stiffness RESPIRATORY: Negative for: Cough, Blood in Sputum, Shortness of breath, Wheezing, Apnea GASTROINTESTINAL: Negative for: Trouble swallowing, Heartburn, Change in bowel habits, Blood in stool, Dark black stools MUSCULOSKELETAL: Negative for: Muscle or joint pain, Stiffness , Joint swelling NEUROLOGIC/PSYCHIATRIC: Negative for: Weakness, Paralysis, Numbness, Tingling, Tremor, Nervousness, Depressed mood, Memory loss SKIN: Negative for: Rashes, Itching HEMATOLOGICAL/LYMPHATIC: Negative for: Easy bruising , Easy bleeding ENDOCRINE: Negative for: Heat or cold intolerance, Excessive sweating, Frequent urination, Frequent thirst CARDIAC RISK FACTORS: Smoking: No Diabetes: No Lipids: No Obesity: No HTN: No, borderline Sedentary Lifestyle: No Family History of M.A.C.E: No CHF: No PVD/Stroke /TIA: No MOST RECENT CARDIAC TESTING: Echo: 09/01/21: CONCLUSIONS: - Exam indication: Leg Edema - The left ventricle is normal in size. Left ventricular systolic function is mildly decreased. EF = 52 5% (2D biplane) Grade I left ventricular diastolic dysfunction. GLS= -17.4% Normal. - The right ventricle is normal in size. Right ventricular systolic function is normal. - The left atrial cavity is moderately dilated. - Mild (1-2+) MR. - Mild (1+) TR. - Mild aortic stenosis with Pk/Mn gradients of 39/22 mmHg. MADELINE is 1.4cm2. - The patient has not had a prior CC echocardiographic exam for comparison. Cardiac Catheterization: ==== Holter / Event Recorder : === Stress Test : === TILT: === Device: === Vasc: === PAST CARDIAC/VASCULAR EVENTS: None ACTIVE PROBLEM LIST Elevated Blood Pressure Reading Without Diagnosis of Hypertension Mixed Hyperlipidemia History of Colon Cancer Diverticulosis of colon (without mention of hemorrhage) Bilateral Hearing Loss Tubular Adenoma of Colon Ex-Smoker Medicare Annual Wellness Visit, Subsequent Prostate Disorder Benign Prostatic Hyperplasia Without Lower Urinary Tract Symptoms Squamous Cell Skin Cancer Abnormal Thyroid Blood Test Mild Aortic Stenosis By Prior Echocardiogram Leg Edema Abnormal Echocardiogram Bilateral Leg Edema Lbbb (Left Bundle Branch Block) Abnormal Electrocardiogram Primary Hypertension PAST SURGICAL HISTORY Procedure Laterality Date APPENDECTOMY 1975 expl lap, close sigmoid perforation COLONOSCOPY W/BIOPSY SINGLE/MULTIPLE 08/01/2017 repeat 5 years I & D ABSCESS child cervical MOHS MICROGRAPHIC H/N/H/F/G 1ST STAGE 5 BLOCKS 05/2016 2 on face SOCIAL HISTORY Social History Tobacco Use Smoking status: Former Smoker Packs/day: 1.00 Years: 5.00 Pack years: 5.00 Types: Cigarettes Smokeless tobacco: Never Used Tobacco comment: states quit 40 years ago Vaping Use Vaping Use: Never used Substance Use Topics Alcohol use: Yes Alcohol/week: 2.5 - 5.0 standard drinks Types: 1 - 2 Glasses of Wine (5oz) per week Comment: social Drug use: Never FAMILY HISTORY Problem Relation Age of Onset Diabetes Mother Diabetes Father Prostate Cancer Brother at age 84 (2-3 yrs after dx) Cancer Paternal Grandfather colon vs prostate Diabetes Paternal Uncle ALLERGIES: ALLERGIES No Known Allergies MEDICATIONS: hydroCHLOROthiazide (HYDRODIURIL, ESIDRIX) 25 mg tablet, Take 1 tablet by mouth once daily. REVIEW OF SYSTEMS: GENERAL: Negative for: Weight loss or gain, Fever or Chills, Weakness and Sleep difficulties. HEENT: Negative for: Headache, Impaired Vision, Glasses, Hearing Impairment, Ringing in Ears, Nosebleeds, Poor dental care, Bleeding Gums, Dentures NECK: Negative for: Swelling, Pain, Stiffness RESPIRATORY: Negative for: Cough, Blood in Sputum, Shortness of breath, Wheezing, Apnea GASTROINTESTINAL: Negative for: Trouble swallowing, Heartburn, Change in bowel habits, Blood in stool, Dark black stools MUSCULOSKELETAL: Negative for: Muscle or joint pain, Stiffness , Joint swelling NEUROLOGIC/PSYCHIATRIC: Negative for: Weakness, Paralysis, Numbness, Tingling, Tremor, Nervousness, Depressed mood, Memory loss SKIN: Negative for: Rashes, Itching HEMATOLOGICAL/LYMPHATIC: Negative for: Easy bruising , Easy bleeding ENDOCRINE: Negative for: Heat or cold intolerance, Excessive sweating, Frequent urination, Frequent thirst PHYSICAL EXAMINATION: BP 140/80 Pulse 84 Resp 18 Ht 5' 7.5 (1.72m) Wt 171 lb (77.6kg) SpO2 95% BMI 26.37 kg/(m^2). General: Well appearing, in no acute distress. Skin: No clubbing, no cyanosis. Eyes: Extra ocular movements intact Oropharynx: Teeth in good repair. Neck: No jugular venous distention, no carotid bruits, carotids have a normal upstroke, no palpable thyromegaly. Lungs: Clear to auscultation bilaterally, no wheezing or rhonchi. Heart: Regular rhythm, PMI not displaced, S1, S2 normal A2 is preserved, no S3, no S4, no heaves, no rub and 2/6 systolic murmur and the aortic outflow tract preserved A2 component, mild apical component. No diastolic murmur. Abdomen: Soft, nontender, bowel sounds normal, no palpable organomegaly, no bruits. Extremities: No peripheral edema . Grade 2/4 distal pulses bilaterally. Neuro: Oriented to person, place and time, alert, cooperative, gait coordinated. CARDIOVASCULAR MEDICINE TESTING: Electrocardiogram: Normal sinus rhythm with left bundle branch block I have personally reviewed the Electrocardiogram and Laboratory Testing. Cholesterol, Total (mg/dL) Date Value 05/02/2020 189 03/29/2019 207 HDL Cholesterol (mg/dL) Date Value 05/02/2020 35 03/29/2019 45 LDL Cholesterol (mg/dL) Date Value 05/02/2020 128 03/29/2019 146 Triglyceride (mg/dL) Date Value 05/02/2020 132 03/29/2019 81 CMP: Glucose 78 05/02/2020 BUN 24 05/02/2020 Creatinine 1.09 05/02/2020 Sodium 136 05/02/2020 Potassium 4.9 05/02/2020 Chloride 99 05/02/2020 CO2 24 05/02/2020 Protein, Total 8.0 05/02/2020 Albumin 3.9 05/02/2020 Calcium 9.3 05/02/2020 Alkaline Phosphatase 88 05/02/2020 Bilirubin, Total 0.3 05/02/2020 AST 25 05/02/2020 ALT 16 05/02/2020 Hemoglobin (g/dL) Date Value 05/02/2020 13.0 Hematocrit (%) Date Value 05/02/2020 39.5 WBC (k/uL) Date Value 05/02/2020 7.19 Platelet Count (k/uL) Date Value 05/02/2020 277 No results found for: HBA1C IMPRESSION: Mr. Saucedo is a 81 year old male with mild hypertension. Home mild aortic valve stenosis with a mean and peak gradient of 20-32mm Hg. He has an abnormal EKG due to due to left bundle branch block. I suspect the patient may have chronic incipient hypertension. Recommendation we will start the patient on low-dose diuretic for his management modality for hypertension. I believe this is permissible by a FAA rules. I will also obtain a pharmacologic nuclear stress test to exclude the possibility of any ischemic burden superimposed on conduction disease and valvular abnormalities. From the cardiac standpoint will require repeat echocardiogram in 2 to 3 years in follow-up of his mild aortic valve stenosis. The patient is encouraged to continue to monitor his blood pressure on a daily basis I have asked him to submit records in 2 weeks. Further medication adjustment may be necessary. In office follow-up 4 months. During this 40 minute visit with greater than 50% of the time was spent in direct, [id number], contact with the patient for management and counseling. 1. Primary hypertension - ICD9: 401.9, ICD10: I10 (primary diagnosis) 2. Abnormal electrocardiogram - ICD9: 794.31, ICD10: R94.31 3. LBBB (left bundle branch block) - ICD9: 426.3, ICD10: I44.7 4. Mild aortic stenosis by prior echocardiogram - ICD9: 424.1, ICD10: I35.0 Devante Kang MD, [facility] This note was partially generated using [employer] voice recognition system, and there may be some incorrect words, spellings, and punctuation that were not noted in checking the note before saving. documented in this encounter [facility] 01-13-2022 Nurse Note Patient has no cardiac complaints today. Natalya Esparza CMA documented in this encounter [facility] 01-12-2022 Miscellaneous Notes Pt. notified. Voices understanding. Maddy Cosme RN ----- Message from Zoraida Martinez APRN.ENGINEERING OPERATIONS LEADER sent at 01/12/2022 8:13 AM EDT ----- Please call patient and notify him of results. BNP is within normal limits. Does not indicate volume overload or CHF. documented in this encounter [facility] 12-24-2021 Miscellaneous Notes Patient did not want to reschedule his cardiology appointment until he spoke to a nurse or the doctor. He is having swelling and desperately needed to see the Doctor on 01/04/22. Please contact this patient to offer him a sooner appointment or to reassure him a later date would be fine or to advise him what he should do in the the mean time. He can be reached at his number listed on his chart documented in this encounter [facility] 08-19-2021 Note HNO ID: [id number] Author: Nelson Howe MD Service: ? Author Type: Physician Type: Progress Notes Filed: 08/19/2021 10:15 AM Note Text: Chief Complaint Patient presents with: Edema: RT leg x 4 months HPI Samy Saucedo is a 80 year old male who presents here today for Above Complaints.. Patient denies any significant injury 4 months ago. Gets pain at times in the back of the right thigh. Has been wearing a support sick and sometimes the foot will hurt. If he takes ibuprofen, gets into a hot tub or rides his road bike intensely the pain is better. If caring something heavy the pain gets worse in the right thigh posteriorly. May have slight cyanosis in toes at times. No chest pain or shortness of breath. Past medical history, appointments, medications, allergies reviewed. Previous Medical History PAST MEDICAL HISTORY Diagnosis Date - Abnormal thyroid blood test 05/03/2020 TSH elevated but Free T4 and thyroid peroxidase normal. Per endo only treat if TSH gets above 10. - Benign prostatic hyperplasia without lower urinary tract symptoms 03/20/2018 - Bilateral hearing loss 03/14/2017 - Diverticulosis of colon (without mention of hemorrhage) - Ex-smoker 03/14/2017 Started at age 19 up to 1 PPD and quit at age 22. - Malignant neoplasm of colon, unspecified site 03/19/2008 - Medicare annual wellness visit, subsequent 03/14/2017 last done: 05/02/2020 - Mixed hyperlipidemia 08/24/2007 - Squamous cell skin cancer 05/04/2018 Right cheek preauricular, 04/2018 - Tubular adenoma of colon 2009 Previous Surgical History PAST SURGICAL HISTORY Procedure Laterality Date - APPENDECTOMY 1974 expl lap, close sigmoid perforation - COLONOSCOPY W/BX 08/01/2017 repeat 5 years - I AND D ABSCESS child cervical - MOHS, 1 STAGE, HEAD/NECK/HAND/FEET/GENTIAL 05/2016 2 on face Family History FAMILY HISTORY Problem Relation Age of Onset - Diabetes Mother - Diabetes Father - Prostate Cancer Brother at age 84 (2-3 yrs after dx) - Cancer Paternal Grandfather colon vs prostate - Diabetes Paternal Uncle Patient Allergies ALLERGIES No Known Allergies Current Medications No current outpatient medications on file prior to visit. No current facility-administered medications on file prior to visit. Social History Social History Tobacco Use - Smoking status: Former Smoker Packs/day: 1.00 Years: 5.00 Pack years: 5.00 Types: Cigarettes - Smokeless tobacco: Never Used - Tobacco comment: states quit 40 years ago Substance Use Topics - Alcohol use: Yes Alcohol/week: 2.5 - 5.0 standard drinks Types: 1 - 2 Glasses of Wine (5oz) per week Comment: social - Drug use: No Review of Symptoms REVIEW OF SYSTEMS See HPI EXAM: BP 124/80 Pulse 86 Resp 12 Wt 75.3 kg (166 lb) BMI 25.62 kg/m? General Appearance: Well appearing, alert, in no acute distress, well-hydrated, well nourished.. Lungs: Lungs clear to auscultation. No wheezing, rhonchi, rales.. Heart: RRR without gallop, or rubs. No ectopy. There is a 2/6 IMAN Extremities: No deformities,skin discoloration, clubbing or cyanosis. Good capillary refill. Has mild pitting edemal in the right lower extremity that extends up into the thigh. No pain with palpation of the thigh anteriorly or posteriorly. No calf pain to palpation. No cords in these areas. Homans' was negative. Health Maintenance List COVID-19 VACCINE(1) Never done DEPRESSION SCREENING due on 03/27/2020 DIABETES SCREEN due on 05/02/2023 DTAP,TDAP,TD(2 - Td or Tdap) due on 08/03/2023 ADVANCE DIRECTIVE DISCUSSION due on 05/02/2025 INFLUENZA Completed PNEUMOVAX AGE 65 AND OVER WITH 5YR LOOKBACK Completed SHINGRIX VACCINE Completed MENINGOCOCCAL CONJUGATE Aged Out Data reviewed A/P ASSESSMENT/PLAN: 1. Leg edema, right - ICD9: 782.3, ICD10: R60.0 (primary diagnosis) Check - ECHO - PERFLUTREN LIPID MICROSPHERES 1.1 MG/ML INJECTION IN NS 10 ML - SODIUM CHLORIDE 0.9 % (FLUSH) INJECTION SYRINGE - US LEG VEIN DVT UNL VAS LAB 2. Heart murmur - ICD9: 785.2, ICD10: R01.1 Check - ECHO - PERFLUTREN LIPID MICROSPHERES 1.1 MG/ML INJECTION IN NS 10 ML - SODIUM CHLORIDE 0.9 % (FLUSH) INJECTION SYRINGE 3. Abnormal thyroid blood test - ICD9: 790.6, ICD10: R79.89 checlk - TSH BLD Will await labs to determine next course of action. Patient to continue wearing support sock. Nelson Howe MD [facility] Primary hypertension- Primary Unspecified essential hypertension Abnormal electrocardiogram Nonspecific abnormal electrocardiogram (ECG) (EKG) LBBB (left bundle branch block) Other left bundle branch block Mild aortic stenosis by prior echocardiogram Aortic valve disorders [facility] Diagnosis Medicare annual wellness visit, subsequent- Primary Routine general medical examination at a health care facility Mixed hyperlipidemia Mild aortic stenosis by prior echocardiogram Aortic valve disorders Diverticulosis of colon Diverticulosis of colon (without mention of hemorrhage) History of colon cancer Personal history of malignant neoplasm of large intestine Benign prostatic hyperplasia without lower urinary tract symptoms Living will in place Advance directive discussed with patient Other specified counseling Primary hypertension Unspecified essential hypertension Bilateral leg edema Edema Abnormal thyroid blood test Nonspecific abnormal results of thyroid function study Prostate disorder Unspecified disorder of prostate [facility] Diagnosis Abnormal electrocardiogram Nonspecific abnormal electrocardiogram (ECG) (EKG) documented in this encounter [facility] for referral (narrative)* Diagnostic Procedure Only (Routine) - Pending Review Specialty Diagnoses / Procedures Referred By Contact Referred To Contact MOLECULAR & FUNCTIONAL IMAGING Diagnoses Abnormal electrocardiogram Procedures NM CARDIAC PERF STRESS/PHARM MYOCARDIAL SPECT MULTIPLE STUDIES Devante Kang MD [address] [address] Molecular & Functional Imaging [address] [place] [address] Referral ID Status Reason Start Date Expiration Date Visits Requested Visits Authorized [id number] Pending Review Auto-Generat ed Referral 01/13/2022 02/12/2023 1 1 T [facility] for referral (narrative)* Diagnostic Procedure Only (Routine) - Closed Specialty Diagnoses / Procedures Referred By Contact Referred To Contact MOLECULAR & FUNCTIONAL IMAGING Diagnoses Abnormal electrocardiogram Procedures NM CARDIAC PERF STRESS/PHARM MYOCARDIAL SPECT MULTIPLE STUDIES Devante Kang MD [address] [place] [address] Molecular & Functional Imaging [address] [place] [address] Referral ID Status Reason Start Date Expiration Date V isits Requested Visits Authorized [id number] Closed Auto-Generate d Referral 01/13/2022 02/12/2023 1 1 [facility] for visit Narrative* Diagnostic Procedure Only (Routine) - Closed Specialty Diagnoses / Procedures Referred By Contact Referred To Contact MOLECULAR & FUNCTIONAL IMAGING Diagnoses Abnormal electrocardiogram Procedures NM CARDIAC PERF STRESS/PHARM MYOCARDIAL SPECT MULTIPLE STUDIES Devante Kang MD [address] [place] [address] Molecular & Functional Imaging [address] [place] [address] Referral ID Status Reason Start Date Expiration Date V isits Requested Visits Authorized [id number] Closed Auto-Generate d Referral 01/13/2022 02/12/2023 1 1 [facility] Summary Purpose Family History No Family History Records FoundNo Family History Records FoundNo Family History Records Found Advance Directives No Advanced Directives Records FoundNo Advanced Directives Records FoundNo Advanced Directives Records Found Additional Source Comments (unrecognized sect ion and content) No Status Records FoundNo Status Records FoundNo Status Records Found INFORMATION SOURCE (unrecogn ized section and content) DATE CREATED AUTHOR AUTHOR'S ORGANIZ ATION 06/05/2022 [facility] DATE CREATED AUTHOR AUTHOR'S ORGANIZ ATION 06/25/2023 [facility] Source Comments (unrecognize d section and content) In the event this informatio n is protected by the Federal Confidentiality of Alcohol and Drug Abuse Patient Records regulations: The Federal rules restrict any use of the information to criminally investigate or prosecute any alcohol or drug abuse patient.[facility] the event this information is protected by the Federal Confidentiality of Alcohol and Drug Abuse Patient Records regulations: The Federal rules restrict any use of the information to criminally investigate or prosecute any alcohol or drug abuse patient.[facility] the event this information is protected by the Federal Confidentiality of Alcohol and Drug Abuse Patient Records regulations: The Federal rules restrict any use of the information to criminally investigate or prosecute any alcohol or drug abuse patient.[facility] the event this information is protected by the Federal Confidentiality of Alcohol and Drug Abuse Patient Records regulations: The Federal rules restrict any use of the information to criminally investigate or prosecute any alcohol or drug abuse patient.[facility] the event this information is protected by the Federal Confidentiality of Alcohol and Drug Abuse Patient Records regulations: The Federal rules restrict any use of the information to criminally investigate or prosecute any alcohol or drug abuse patient.[facility] the event this information is protected by the Federal Confidentiality of Alcohol and Drug Abuse Patient Records regulations: The Federal rules restrict any use of the information to criminally investigate or prosecute any alcohol or drug abuse patient.[facility] the event this information is protected by the Federal Confidentiality of Alcohol and Drug Abuse Patient Records regulations: The Federal rules restrict any use of the information to criminally investigate or prosecute any alcohol or drug abuse patient.[facility] the event this information is protected by the Federal Confidentiality of Alcohol and Drug Abuse Patient Records regulations: The Federal rules restrict any use of the information to criminally investigate or prosecute any alcohol or drug abuse patient.[facility] the event this information is protected by the Federal Confidentiality of Alcohol and Drug Abuse Patient Records regulations: The Federal rules restrict any use of the information to criminally investigate or prosecute any alcohol or drug abuse patient.[facility] the event this information is protected by the Federal Confidentiality of Alcohol and Drug Abuse Patient Records regulations: The Federal rules restrict any use of the information to criminally investigate or prosecute any alcohol or drug abuse patient.[facility] the event this information is protected by the Federal Confidentiality of Alcohol and Drug Abuse Patient Records regulations: The Federal rules restrict any use of the information to criminally investigate or prosecute any alcohol or drug abuse patient.[facility] Care Teams (unrecognized sec tion and content) Wind Commissioning Technician Relationship Specialty Start Date End Date Nelson Howe MD [address] [place] [address] PCP - General Family Practice 03/14/17 Wind Commissioning Technician Relationship Specialty Start Date End Date Nelson Howe MD [address] [facility] [place] [address] PCP - General Family Practice 03/14/17 Wind Commissioning Technician Relationship Specialty Start Date End Date Nelson Howe MD [address] [facility] [place] [address] PCP - General Family Practice 03/14/17 Wind Commissioning Technician Relationship Specialty Start Date End Date Nelson Howe MD [address] [facility] [place] [address] PCP - General Family Practice 03/14/17 Wind Commissioning Technician Relationship Specialty Start Date End Date Nelson Howe MD [facility] [facility] [place] [address] PCP - General Family Practice 03/14/17 Wind Commissioning Technician Relationship Specialty Start Date End Date Nelson Howe MD [address] [facility] [place] [address] PCP - General Family Practice 03/14/17 Wind Commissioning Technician Relationship Specialty Start Date End Date Nelson Howe MD [address] [facility] [place] [address] PCP - General Family Practice 03/14/17 Wind Commissioning Technician Relationship Specialty Start Date End Date Nelson Howe MD [address] [facility] [place] [address] PCP - General Family Medicine 03/14/17 Wind Commissioning Technician Relationship Specialty Start Date End Date Nelson Howe MD [address] [place] [address], [place] [address] PCP - General Family Medicine 03/14/17 Wind Commissioning Technician Relationship Specialty Start Date End Date Nelson Howe MD [address] [place] [address], [place] [address] PCP - General Family Medicine 03/14/17 Reason for Visit (unrecogniz ed section and content) Reason Comments Results Reason Comments New Patient Evaluation abnormal echo Reason Comments Medicare Wellness Exam Reason Comments Refill Request FOR RECORDS PERTAINING TO PATIENTS WHO ARE OR HAVE BEEN ENROLLED IN A CHEMICAL DEPENDENCY/SUBSTANCEABUSE PROGRAM, SOME INFORMATION MAY BE OMITTED. This clinical summary was aggregated from multiple sources. Caution should be exercised in using it in the provision of clinical care. This summary normalizes information from multiple sources, and as a consequence, information in this document may materially change the coding, format and clinical context of patient data. In addition, data may be omitted in some cases. CLINICAL DECISIONS SHOULD BE BASED ON THE PRIMARY CLINICAL RECORDS. [employer] provides no warranty or guarantee of the accuracy or completeness of information in this document.
--- NOTE | 2023-09-01 17:39 | ED.VIS.CHEST ---
HPI History of Present Illness Chief Complaint: Chest Pain Detail of Chief Complaint: Chest tingling and indigestion intermittent for the last 2 weeks. Informant: patient and spouse/S.O. Onset/Context/Timing Onset: Weeks Activity at onset: gradual Timing: Intermittent Location: Left Chest Current Severity: Gone Maximum Severity: Mild Worsened By: Nothing Relieved By: Nothing Associated Symptoms: Negative for Nausea, Vomiting, Diaphoresis, Dyspnea, Cough, Fever, Lightheadedness, Acid Reflux or Palpitations Narrative Narrative: 82-year-old male no signet past medical history. Had a negative nuclear stress test a year and a half ago. Had a recent echocardiogram showing mild aortic stenosis. He had some tingling in his chest and left arm intermittently for the last 2 weeks. Also some indigestion. He really will describe it is any pain. No shortness of breath or nausea. No diaphoresis. Not associated with exertion. He is a very active man and he and his walked a mile the other day without any difficulty. He bikes regularly in the summer. He had no exertional symptoms. No cardiac history. Prior Similar Symptoms: No Recent Illness/Hospitalization: No CVD Risk Factors: Negative for Hypertension, Diabetes, Hypercholesterolemia or Family History 1' </=55 PE Risk Factors: Negative for Recent Travel/Surgery TAD Risk Factors: Negative for Marfan's Syndrome [facility] Medical History Abnormal echocardiogram Abnormal thyroid blood test Bilateral hearing loss Bilateral leg edema BPH (benign prostatic hyperplasia) Diverticulosis of colon (without mention of hemorrhage) Essential hypertension LBBB (left bundle branch block) Malignant neoplasm of colon, unspecified site Mild aortic stenosis by prior echocardiogram Mixed hyperlipidemia Pure hypercholesterolemia Squamous cell skin cancer (~04/2018) Tubular adenoma of colon Home Medications hydrochlorothiazide 25 mg tablet 25 mg PO DAILY #90 tabs 01/19/23 [Rx Last Taken Unknown] rosuvastatin 5 mg tablet 5 mg PO MOTUWETHFR #90 tabs 08/23/23 [Rx Last Taken Unknown] Allergy/AdvReac Type Severity Reaction Status Date / Time ethinyl estradiol Allergy Intermediate other Verified 09/01/23 15:32 [From Seasonale (91)] levonorgestrel Allergy Intermediate other Verified 09/01/23 15:32 [From Seasonale (91)] Family History Mother Diabetes Father Diabetes Grandfather Cancer colon vs prostate Uncle Diabetes Surgical History History of colonoscopy History of Mohs surgery for squamous cell carcinoma of skin (~05/2016) History of rectal polypectomy Hx of appendectomy (~1974) Social History Smoking Status: Never smoker how long ago did patient quit smoking: quit over 40 years ago alcohol intake: current alcohol intake frequency: a few times a week Alcohol type: wine substance use type: does not use caffeine: Yes Type: coffee Number of servings: 1 what type of physical activity do you participate in: bicycling frequency: 3-4 times per week ROS ROS ED ROS Narrative Denies recent illness. Review of Systems ROS Unobtainable: Denies due to encephalopathy Constitutional Constitutional ED: Denies chills or fever(s) Eyes Eyes: Reports none ENT ENT ED: Denies ear pain Cardiovascular Cardiovascular: Denies as per HPI, chest pain or palpitations Respiratory/Chest Respiratory/Chest: Denies cough or dyspnea Gastrointestinal Gastrointestinal: Denies abdominal pain Genitourinary Genitourinary ED: Denies dysuria or hematuria Musculoskeletal Musculoskeletal: Denies arthralgias Integumentary Denies abscess or Abrasions Neurologic Neurologic: Denies headache(s) Psychiatric Psychiatric: Denies anxiety or depression Endocrine Endocrinology: Denies cold intolerance Hematologic/Lymphatic Hematologic/Lymphatic: Denies easy bleeding or easy bruising Allergic/Immunologic Allergic/Immunologic ED: Denies mouth swelling, tongue swelling or urticaria EXAM Physical Exam Narrative Exam Narrative: 82-year-old male no acute distress vital signs stable afebrile. H EENT exam unremarkable. Neck nontender no JVD. Lungs clear to auscultation bilaterally. Heart regular rhythm no murmur. Abdomen soft nontender. Moving all 4 extremities. Nontender no edema. Equal symmetrical radial pulses. Normal database engineer strength. Normal dorsi plantarflexion. He is awake alert. Answer questions following commands. Const Vital Signs: 09/01/23 15:33 09/01/23 17:11 09/01/23 17:13 Temperature 98.9 F Temperature Source Temporal Pulse Rate 89 76 Respiratory Rate 18 16 Respiratory Effort Blood Pressure 173/108 H 143/87 H Blood Pressure Mean 129 105 Pulse Ox 93 93 Oxygen Delivery Method Room Air Room Air Room Air 09/01/23 17:13 09/01/23 19:00 Temperature Temperature Source Pulse Rate 67 Respiratory Rate 16 Respiratory Effort Normal Blood Pressure 147/80 H Blood Pressure Mean 102 Pulse Ox 94 Oxygen Delivery Method Room Air Positive well nourished and well developed; Negative for obese, cachectic, contractures or unkempt General Appearance ED: well developed and NAD; Negative for unkempt, cachectic, contractures or pallor Nutritional Appearance: Negative for cachectic or obese HEENT Reports moist mucous membranes normocephalic and atraumatic; Negative for trauma or tenderness Eyes PERRL and EOMs intact bilaterally General Eye ED: Negative for pale conjunctiva or scleral icterus Neck no lymphadenopathy, supple and no JVD General: Negative for tenderness or other Chest Wall inspection of chest normal and palpation of chest normal Chest: Negative for tenderness or other Resp normal respiratory effort and clear to auscultation bilaterally Effort and Inspection: Negative for respiratory distress Auscultation: Negative for rales, rhonchi or wheezes Cardio regular rate, regular rhythm, S1 normal heart sound, S2 normal heart sound and no murmurs Rate: Negative for bradycardia or tachycardic Rhythm: Negative for abnormal rhythm Peripheral Pulses: pulses 2+ throughout GI normal to inspection, nondistended, normoactive bowel sounds, soft to palpation, non-tender, non-distended and no masses Auscultation: Negative for hyperactive bowel sounds Back/Spine no CVA tenderness and no thoracic nor lumbar tenderness General Back: Negative for CVA tenderness Cervical Spine: Negative for cervical spine tenderness Extremity normal to inspection General Extremety ED: Negative for edema, pulses abnormal or tenderness General Extremity: Negative for edema or pulses abnormal Neuro oriented x3 and CN's II-XII intact bilaterally Sensorium / Orientation: awake, alert, oriented to person, oriented to place and oriented to time; Negative for confused, lethargic or stuporous Motor Exam: strength 5/5 throughout Psych mental status grossly normal Appearance: Negative for unkempt Attitude: No agitated Mood & Affect: Negative for depressed, anxious or tearful Skin no rashes or lesions noted and no wounds General Skin Exam: Negative for jaundice or pallor Rashes: No rashes noted Trauma: Negative for abrasion or laceration Heart Score History: Slightly/Non-Suspicious ECG: Normal Age: >/= 65 years Risk Factors: No Risk Factors Troponin: </= Normal Limit Score: 2 MDM MDM MDM Narrative Medical decision making narrative: 2-year-old male with atypical noncardiac sounding chest tingling. Exam benign. Negative nuclear stress test a year and a half ago. Unremarkable echo within the last year other than some mild aortic stenosis. Cardiac workup is negative outpatient follow-up. Repeat exam patient doing well at 8:12 PM. We went over his test results. He will be discharged home. History & Record Review Discussion w/independent historian: Patient Additional record(s) reviewed:: Prior inpatient record, Prior outpatient record, Prior ED visit and Prior labs Lab Data Attestation: I reviewed the patient's lab results. Lab results narrative: CBC shows a white count of 6. H&H 12.3 and 36 which is his baseline. Platelets 231. Electrolytes show a gap of 7 BUN and creatinine of 35 and 1.3. Glucose of 141. Initial troponin 7. 2-hour troponin is only 9. Labs: Laboratory Results - last 24 hr 09/01/23 09/01/23 15:40 17:54 WBC 6.3 RBC 4.04 L Hgb 12.3 L Hct 36.9 L MCV 91.3 MCH 30.4 MCHC 33.3 RDW Std Deviation 44.7 H RDW Coeff of Ligia 13.3 Plt Count 231 MPV 9.2 Immature Gran % (Auto) 0.300 Neut % (Auto) 69.1 Lymph % (Auto) 13.9 L Roane % (Auto) 14.5 H Eos % (Auto) 1.9 Baso % (Auto) 0.3 Absolute Neuts (auto) 4.4 Absolute Lymphs (auto) 0.88 Nucleated RBC % 0 Sodium 137 Potassium 3.8 Chloride 103 Carbon Dioxide 27.0 Anion Gap 7 BUN 35 H Creatinine 1.39 H Est GFR (MDRD) Af Amer 63 Est GFR (MDRD) Non-Af 52 L BUN/Creatinine Ratio 25.2 H Glucose 141 H Calcium 9.7 Troponin I High Sens 7 9 Radiography Chest X-Ray - ED: 1 View, Read by ED Physician, Read by Radiologist, Mediastinum, Bony Structures, No Acute Disease and Chronic Changes Diagnostic Testing: Clinical Impression(s) from Imaging Studies Chest X-Ray 09/01/23 16:00 IMPRESSION: Degenerative changes, as described above. No demonstrated acute cardiopulmonary process. Electronically Signed: Anthony Jade MD at 16:31 EST , Chest x-ray, portable, single view interpreted by myself and radiologist shows chronic changes no acute process. Rhythm Strip Rhythm Strip: Sinus Rhythm Rate: 94 Ectopy: None EKG Initial EKG: Attestation: I personally reviewed and interpreted this EKG as follows: Interpretation: Sinus Rhythm and No Acute Injury Pattern Comments: Normal sinus rhythm rate of 94. Left bundle branch block. No acute signs of NE or ischemia. Discharge Plan Triage Chief Complaint: Chest Pain ED Provider: Tacos Damico Dx/Rx/DC Orders Clinical Impression: Chest pain of uncertain etiology, Mild aortic stenosis by prior echocardiogram, Essential hypertension, LBBB (left bundle branch block) Instructions: ED Chest Pain, Uncertain Cause Prescriptions: No Action hydrochlorothiazide 25 mg tablet 25 mg PO DAILY Qty: 90 3RF rosuvastatin 5 mg tablet 5 mg PO MOTUWETHFR Qty: 90 3RF Primary Care Provider: Chula Bella Referrals: Chula Bella MD [Primary Care Provider] - As Needed Activity Restrictions/Additional Instructions: Your labs and EKG and chest x-ray are unremarkable. They are consistent with prior test you had done before. Follow-up with your doctor as needed. Disposition Disposition: Home, Self Care
[2023-09-01 17:43] LABS: Reflex Troponin-HS? (from REC) Y
--- NOTE | 2023-09-01 17:58 | ED.RN ---
NO OLD EKG
[2023-09-01 18:23] LABS: Troponin-I HS 9 pg/mL (3.0-78.0)
[2023-09-01 19:00] VITALS: BP 147/80; PULSE 67; RESP 16; O2SAT 94
[2023-09-01 20:00] VITALS: BP 152/108
== END 2023-09-01 20:20 | disposition home or self-care (01) ==
PROVIDERS: Emergency Provider Emergency Medicine; PCP Internal Medicine; Visit Provider Emergency Medicine
DX: R07.9 Chest pain, unspecified (principal); I35.0 Nonrheumatic aortic (valve) stenosis; I10 Essential (primary) hypertension; I44.7 Left bundle-branch block, unspecified
CPT/HCPCS: 71045; 80048; 84484; 85025; 93005; 99284; A4216

== ENCOUNTER → 2024-03-15 | Outpatient (CLI) | payer MEDICARE, SELFPAY ==
[2024-03-15 08:28] LABS: Cholesterol 162 mg/dL (200); High Density Lipoprotein 44 mg/dL; Triglycerides 115 mg/dL; Very Low Density Lipoprotein 23 mg/dL (5-40)
[2024-03-15 11:18] LABS: ALB/GLOB Ratio 0.7 RATIO (0.9-2.4); AST(SGOT) 26 U/L (15-37); Alanine Aminotransfer ALT/SGPT 26 U/L (16-61); Albumin, Serum 3.4 g/dL (3.2-5.0); Alkaline Phosphatase 60 U/L (45-117); Anion Gap 8 (5-15); BUN 35 mg/dL (7-18); BUN/Creat Ratio 24.6 RATIO (10-20); Calcium,Total 9.6 mg/dL (8.5-10.1); Chloride 104 mmol/L (98-107); Creatinine, Serum 1.42 mg/dL (0.70-1.30); EST Glomerular Filtration Rate 51 mL/min (>60); Est Glom Filt Rate - Afr Amer 61 mL/min (>60); Glucose 95 mg/dL (74-106); Potassium 3.6 mmol/L (3.5-5.1); Protein, Total 8.4 g/dL (6.4-8.2); Sodium Level 138 mmol/L (136-145)
== END | disposition home or self-care (01) ==
LOC: LAB 07:19
PROVIDERS: PCP Internal Medicine; Referring Provider Internal Medicine Cardiovascular Disease; Visit Provider Internal Medicine Cardiovascular Disease
DX: I10 Essential (primary) hypertension (principal); I35.0 Nonrheumatic aortic (valve) stenosis; E78.2 Mixed hyperlipidemia
CPT/HCPCS: 36415; 80053; 80061; 83735

== ENCOUNTER → 2024-06-04 | Outpatient (CLI) | payer MEDICARE, SELFPAY ==
[2024-06-04 16:20] LABS: Anion Gap 8 (5-15); BUN 42 mg/dL (7-18); BUN/Creat Ratio 23.1 RATIO (10-20); Calcium,Total 9.9 mg/dL (8.5-10.1); Chloride 102 mmol/L (98-107); Creatinine, Serum 1.82 mg/dL (0.70-1.30); EST Glomerular Filtration Rate 38 mL/min (>60); Est Glom Filt Rate - Afr Amer 46 mL/min (>60); Glucose 110 mg/dL (74-106); Magnesium 1.9 mg/dL (1.6-2.6); PSA,Total - Annual Screen 1.02 ng/mL (0.00-4.00); Potassium 4.4 mmol/L (3.5-5.1); Sodium Level 135 mmol/L (136-145)
== END | disposition home or self-care (01) ==
LOC: LAB 14:57
PROVIDERS: PCP Internal Medicine; Referring Provider Internal Medicine; Visit Provider Internal Medicine
DX: Z12.5 Encounter for screening for malignant neoplasm of prostate (principal); I10 Essential (primary) hypertension
CPT/HCPCS: 36415; 80048; 83735; 84153; G0103

== ENCOUNTER → 2025-04-01 | Outpatient (CLI) | payer MEDICARE, SELFPAY ==
--- NOTE | 2025-04-01 13:00 | ECHOD_ITS ---
Reason For Study Reason For Study: AORTIC STENOSIS Procedure This was a 2D Doppler, Color Flow transthoracic echocardiogram. Exam performed in department. Left Ventricle Normal LV size. The left ventricular ejection fraction is 65 %. Stage 1 diastolic dysfunction. Resting LV gradient 10 mmHg. Valsalva LV gradient 24 mmHg. Mid cavitary dynamic gradient 24 mm/Hg. No regional wall motion abnormalities noted. Right Ventricle Normal RV size. Normal systolic function. Atria Normal left atrium. Normal right atrium. Mitral Valve There is mild mitral annular calcification. Mild focal mitral valve calcification, bileaflet. Tricuspid Valve Normal tricuspid valve. Mild to moderate (1-2+) tricuspid valve insufficiency. Pulmonary artery systolic pressure is 44 mmHg. Aortic Valve Trisinus/trileaflet aortic valve. Mild focal aortic valve calcification. Peak aortic valve gradient 47 mmHg. Mean aortic valve gradient 29 mmHg. Mild to moderate aortic stenosis. Pulmonic Valve Normal pulmonic valve. Great Vessels Normal aortic root. The pulmonary artery is normal size. Normal inferior vena cava. Pericardium/Pleural No pericardial effusion. MMode/2D Measurements & Calculations LVIDd: 4.2 cm IVSd: 1.1 cm LVOT diam: 2.0 cm LVIDs: 2.4 cm LVPWd: 1.2 cm LVOT area: 3.2 cm2 RVDd: 3.8 cm FS: 43.0 % asc Aorta Diam: 3.3 cm LAV(MOD-bp): 43.3 ml LVAd ap4: 24.5 cm2 LAV(MOD-bp) Indexed: 22.2 ml/m2 LVLd ap4: 8.0 cm LAV(MOD-sp2): 54.1 ml EDV(MOD-sp4): 62.6 ml LAV(MOD-sp4): 32.1 ml EDV(sp4-el): 64.0 ml LVAs ap4: 13.7 cm2 LVLs ap4: 6.9 cm ESV(MOD-sp4): 23.7 ml ESV(sp4-el): 23.0 ml EF(MOD-sp4): 62.1 % EF(sp4-el): 64.1 % LVAd ap2: 22.5 cm2 SV(MOD-sp4): 38.9 ml SV(MOD-sp2): 34.1 ml LVLd ap2: 8.1 cm SI(MOD-sp4): 20.0 ml/m2 SI(MOD-sp2): 17.5 ml/m2 EDV(MOD-sp2): 52.9 ml EDV(sp2-el): 53.0 ml LVAs ap2: 11.7 cm2 LVLs ap2: 6.8 cm ESV(MOD-sp2): 18.8 ml ESV(sp2-el): 17.0 ml EF(MOD-sp2): 64.4 % SV(sp4-el): 41.0 ml Ao sinus diam: 3.[address] Junction: 2.6 cm LA dimension(2D): 3.6 cm LA A4 area: 14.2 cm2 RA A4 area: 9.8 cm2 TAPSE: 1.7 cm Time Measurements MV dec time: 0.29 sec Doppler Measurements & Calculations MV E max maximo: 66.3 cm/sec Lat Peak E' Maximo: 10.4 cm/sec Med Peak E' Maximo: 8.5 cm/sec MV A max maximo: 115.7 cm/sec E/E' lat: 6.4 E/E' med: 7.8 MV E/A: 0.57 MV dec slope: 225.9 cm/sec2 Ao V2 max: 344.1 cm/sec LV V1 max: 144.0 cm/sec Ao max P.4 mmHg LV V1 max P.3 mmHg Ao V2 mean: 257.6 cm/sec LV V1 mean P.2 mmHg Ao mean P.4 mmHg LV V1 mean: 122.6 cm/sec Ao V2 VTI: 63.5 cm LV V1 VTI: 29.0 cm AV (velocity ratio): 0.46 MADELINE(I,D): 1.4 cm2 MADELINE(V,D): 1.3 cm2 SV(LVOT): 91.6 ml PA V2 max: 121.9 cm/sec TR max maximo: 319.8 cm/sec TR max P.9 mmHg ECHO/Echo Complete Interpretation Summary Normal LV size. The left ventricular ejection fraction is 65 %. Stage 1 diastolic dysfunction. Mid cavitary dynamic gradient 24 mm/Hg. Mild focal aortic valve calcification. Mean aortic valve gradient 29 mmHg. Mild to moderate aortic stenosis. Ordering Physician: Elie Parisi Referring Physician: Chula Bella M.D. Performed By: Bonita Walton RDCS
== END | disposition home or self-care (01) ==
LOC: CVS 12:59
PROVIDERS: PCP Internal Medicine; Referring Provider Nurse Practitioner Family; Visit Provider Nurse Practitioner Family
DX: I35.0 Nonrheumatic aortic (valve) stenosis (principal); I44.7 Left bundle-branch block, unspecified
CPT/HCPCS: 93306